=== PATIENT | female | born 1970 | race Caucasian/White ===

== ENCOUNTER 2022-06-17 05:31 | Inpatient (IN) | payer OTHER ==
[2022-06-11 17:28] VITALS: BMI 26.5
[2022-06-17] MEDS ORDERED: GABAPENTIN 300 MG CAPSULE ONE (06:57)
[2022-06-17] MEDS ORDERED: GABAPENTIN 300 MG CAPSULE PO ONE (07:00)
[2022-06-17] MEDS ORDERED: CLINDAMYCIN 300 MG PREMIX IVPB 300 MG/50 ML BAG IVPB ONE (07:00)
[2022-06-17] MEDS ORDERED: MIDAZOLAM HCL 2 MG/2 ML SINGLE DOSE VIAL ONE (07:17)
[2022-06-17] MEDS ORDERED: KETAMINE HCL 500 MG/10 ML VIAL ONE (07:17)
[2022-06-17] MEDS ORDERED: PROPOFOL 40 ML ONE ×2 (07:22→16:38)
[2022-06-17] MEDS ORDERED: ACETAMINOPHEN 1000 MG/100 ML BAG IVPB ONE (07:30)
[2022-06-17] MEDS ORDERED: TRANEXAMIC ACID 1000 MG/10 ML VIAL IVPUSH ONE (08:00)
[2022-06-17] MEDS ORDERED: CLINDAMYCIN 900 MG PREMIX BAG IVPB ONE (08:30)
[2022-06-17] MEDS ORDERED: CLINDAMYCIN 600MG PREMIX IVPB 600 MG/50 ML BAG IVPB ONE (08:37)
[2022-06-17] MEDS ORDERED: PROPOFOL 20 ML ONE (08:58)
[2022-06-17] MEDS ORDERED: LIDOCAINE HCL 0.5% EPINEPHRINE 1:200,000 50 ML VIAL IJ ONE ×2 (09:00)
[2022-06-17] MEDS ORDERED: ROCURONIUM BROMIDE 50 MG/5 ML SYRINGE ONE ×2 (09:02→16:39)
[2022-06-17] MEDS ORDERED: ALBUTEROL SO4 HFA INHALER IH PRN (11:41)
[2022-06-17] MEDS ORDERED: PATIENT'S OWN MEDICATION (NON-FORMULARY) (Semaglutide [Ozempic] 1 MG/0.75 ML Pen.Injctr) SQ SCH (11:45)
[2022-06-17] MEDS ORDERED: CYANOCOBALAMIN (VITAMIN B-12) 1000 MCG/1 ML VIAL IM SCH (11:45)
[2022-06-17] MEDS: IBUPROFEN 800 MG/8 ML IJ IVPB PRN (15:50)
[2022-06-17] MEDS ORDERED: LACTATED RINGERS SOLUTION 1000 ML INFUS.BAG IV ONE (16:07)
[2022-06-17] MEDS ORDERED: oxyCODONE HCL 5 MG TABLET PO PRN (16:08)
[2022-06-17] MEDS ORDERED: ONDANSETRON 4 MG/2 ML VIAL IVPUSH PRN (16:10)
[2022-06-17] MEDS ORDERED: ZOLPIDEM TARTRATE 5 MG TABLET PO PRN (16:10)
[2022-06-17] MEDS ORDERED: BISACODYL 5 MG TABLET.DR (FP) PO PRN (16:10)
[2022-06-17] MEDS: CLINDAMYCIN 900 MG PREMIX IVPB 900 MG/50 ML BAG IVPB SCH (18:26)
[2022-06-17] MEDS: ACETAMINOPHEN 1000 MG/100 ML BAG IVPB PRN (19:18)
[2022-06-17] MEDS ORDERED: HYDROmorphone HCl 2 MG/ML VIAL IVPB ONE (21:15)
[2022-06-17] MEDS: DOCUSATE SODIUM 100 MG CAPSULE (FP) PO SCH (21:27)
[2022-06-17] MEDS ORDERED: ATORVASTATIN CA 10 MG TABLET (FP) PO SCH (22:00)
[2022-06-18] MEDS: CLINDAMYCIN 900 MG PREMIX IVPB 900 MG/50 ML BAG IVPB SCH ×2 (01:27→09:48)
[2022-06-18] MEDS: SIMETHICONE 80 MG TAB.CHEW (FP) PO PRN ×2 (02:26→08:21)
[2022-06-18] MEDS: IBUPROFEN 800 MG/8 ML IJ IVPB PRN (02:29)
[2022-06-18] MEDS: ACETAMINOPHEN 1000 MG/100 ML BAG IVPB PRN (05:57)
[2022-06-18] MEDS: DOCUSATE SODIUM 100 MG CAPSULE (FP) PO SCH ×2 (05:58→15:18)
[2022-06-18 06:24] VITALS: TEMP 98.4
[2022-06-18 08:16] LABS: HIV INTERPRETATION PRESUMPTIVE POSITIVE (NEGATIVE)
[2022-06-18] MEDS ORDERED: oxyCODONE HCL 5 MG TABLET PO PRN (09:26)
[2022-06-18 09:33] VITALS: BP 88/59; PULSE 86; RESP 20
[2022-06-18 09:44] LABS: BASO % 0.3 % (0-2.0); EOS % 2.7 % (0-4.5); HEMATOCRIT 30.1 % (32.4-45.2); HEMOGLOBIN 10.4 GM/dL (10.7-15.3); LYMPH % 19.7 % (8-40); MCH 31.8 pg (25.7-33.7); MCHC 34.6 g/dl (32.0-36.0); MEAN CELL VOLUME 92.1 fl (80-96); MEAN PLT VOLUME 8.3 fl (7.5-11.1); MONO % 5.9 % (3.8-10.2); NEUT % 71.4 % (42.8-82.8); PLATELET COUNT 157 10^3/uL (134-434); RBC 3.27 M/mm3 (3.60-5.2); RDW 13.3 % (11.6-15.6); WHITE BLOOD COUNT 5.9 K/mm3 (4.0-10.0)
[2022-06-18] MEDS ORDERED: [UNRECOGNIZED DRUG - OTHER] MC SCH (10:00)
[2022-06-18] MEDS ORDERED: PROGESTERONE MICRONIZED MC SCH (10:00)
[2022-06-18] MEDS ORDERED: ELVITEG/COB/EMTRI/TENOF (GENVOYA) TABLET PO SCH (10:00)
== END 2022-06-18 16:20 | disposition home or self-care (01) | DRG 519 ==
LOC: JASUSAT 05:31 → JASU-SURG 05:31 → J3W 14:32 → JASUSAT 14:33
PROVIDERS: ADMIT Specialist; ATTEND Specialist
PROC: 8E0W4CZ Robotic Assisted Procedure of Trunk Region, Percutaneous Endoscopic Approach (ICD-10-PCS; 2022-06-17)
PROC: 0UT74ZZ Resection of Bilateral Fallopian Tubes, Percutaneous Endoscopic Approach (ICD-10-PCS; 2022-06-17)
PROC: 0UT94ZZ Resection of Uterus, Percutaneous Endoscopic Approach (ICD-10-PCS; principal; 2022-06-17 08:00)
PROC: 0DNW3ZZ Release Peritoneum, Percutaneous Approach (ICD-10-PCS; 2022-06-17 08:00)
DX: D25.9 Leiomyoma of uterus, unspecified (principal); G89.18 Other acute postprocedural pain; N73.6 Female pelvic peritoneal adhesions (postinfective); N92.0 Excessive and frequent menstruation with regular cycle; R10.2 Pelvic and perineal pain; N80.03 Adenomyosis of the uterus; N72 Inflammatory disease of cervix uteri
CPT/HCPCS: 36415; 81025; 84460; 85025; 86803; 86850; 86900; 86901; 87340; 87389; 87536; 88302-TC; 88307-TC; 94760; C9803-CS; U0003; U0005